=== PATIENT | female | born 1970 | race Hispanic/Latino ===

== ENCOUNTER → 2024-11-03 | Day surgery (SDC) | payer BC ==
[~2024-11-03] MED LIST: FENTANYL CITRATE/PF 100MCG/2 ML INJ ONE; HYOSCYAMINE SULFATE 0.5 MG/ML INJ ONE; METFORMIN HCL500 M2 PO; MIDAZOLAM HCL 2 MG/2 ML VIAL ONE; OZEMPIC0.25 MG/02 SC; PROPOFOL IV EMULSION 10 MG/ML 20 ML VIAL ONE; SIMVASTATIN20 MG PO; VIT D3 PO; ZESTRIL2.5 MG PO
[2024-11-03] MEDS: LACTATED RINGER'S 1,000 ML ONE (06:27)
[2024-11-03 09:26] VITALS: TEMP 97.9
[2024-11-03 09:55] VITALS: BP 130/80; PULSE 79; RESP 15; O2SAT 97
== END | disposition home or self-care (01) ==
LOC: OR 06:04
PROVIDERS: ATTEND Internal Medicine Gastroenterology
DX: Z12.11 Encounter for screening for malignant neoplasm of colon (principal); K63.5 Polyp of colon; K64.8 Other hemorrhoids; E11.9 Type 2 diabetes mellitus without complications; I10 Essential (primary) hypertension; E78.5 Hyperlipidemia, unspecified; Z01.810 Encounter for preprocedural cardiovascular examination; Z79.84 Long term (current) use of oral hypoglycemic drugs; Z79.85 Long-term (current) use of injectable non-insulin antidiabetic drugs; Z79.899 Other long term (current) drug therapy
CPT/HCPCS: 45380; 93005; J1980; J2250; J2704; J3010; J7121; 45378